=== PATIENT | male | born 1985 | race Caucasian/White ===

== ENCOUNTER 2017-01-04 18:36 | Emergency (ER) | payer MEDICAID ==
[~2017-01-04] VITALS: Ht 177.8 cm; Wt 99.8 kg
[2017-01-04 22:20] VITALS: BP 124/75
== END 2017-01-04 22:20 | disposition home or self-care (01) ==
LOC: ED 18:36
DX: L03.032 Cellulitis of left toe (principal)
CPT/HCPCS: 90715; J0696

== ENCOUNTER 2018-08-19 10:40 | Emergency (ER) | payer MEDICAID ==
[~2018-08-19] VITALS: Ht 177.8 cm; Wt 96.2 kg
[2018-08-19 10:49] VITALS: Ht 177.8 cm; Wt 96.2 kg
[2018-08-19 12:16] VITALS: BP 133/81
== END 2018-08-19 12:16 | disposition home or self-care (01) ==
LOC: ED 10:40
DX: L03.115 Cellulitis of right lower limb (principal); W17.89XA Other fall from one level to another, initial encounter; Y93.55 Activity, bike riding; Y92.488 Other paved roadways as the place of occurrence of the external cause; Y99.8 Other external cause status
CPT/HCPCS: Q0092